=== PATIENT | male | born 1955 | race Caucasian/White ===

== ENCOUNTER 2019-10-31 08:55 | Emergency (ER) | payer OTHER ==
[~2019-10-31] VITALS: Ht 180.3 cm; Wt 78.7 kg
[2019-10-31 09:03] VITALS: BP 168/99
== END 2019-10-31 10:06 | disposition home or self-care (01) ==
LOC: ED 09:42
DX: L02.211 Cutaneous abscess of abdominal wall (principal); Z98.890 Other specified postprocedural states
CPT/HCPCS: 99283

== ENCOUNTER → 2021-05-03 | Outpatient (CLI) | payer OTHER ==
[~2021-05-03] MED LIST: AMLO-150 PO; HYDR25TA6 PO; LOSA100T14 PO
[2021-05-03 14:46] LABS: BASOPHILS % (AUTO) 1 % (0-1); EOSINOPHILS % (AUTO) 1 % (1-7); LYMPHOCYTES % (AUTO) 34 % (22-44); MEAN CORPUSCULAR HEMOGLOBIN 35.6 pg (27.5-34.5); MEAN CORPUSCULAR HGB CONC 34.5 g/dL (33.2-36.2); MEAN PLATELET VOLUME 6.7 fL (7.4-10.4); MONOCYTES % (AUTO) 12 % (2-9); NEUTROPHILS % (AUTO) 52 % (42-75); PLATELET COUNT 333 x10^3/uL (130-400); RED BLOOD COUNT 4.08 x10^6/uL (4.38-5.82); RED CELL DISTRIBUTION WIDTH 12.9 % (9.4-14.8)
[2021-05-03 14:58] LABS: ALBUMIN 4.3 g/dL (3.4-5.0); ANION GAP 9 mmol/L (5-15); CALCIUM 9.4 mg/dL (8.5-10.1); CHLORIDE 100 mmol/L (98-107); INTERNATIONAL NORMALIZED RATIO 0.95 (0.93-1.1); PROTHROMBIN TIME 10.2 Seconds (9.6-11.5)
[2021-05-03 15:02] LABS: ALANINE AMINOTRANSFERASE 37 U/L (12-78); ALKALINE PHOSPHATASE 32 U/L (45-117); BILIRUBIN,TOTAL 0.7 mg/dL (0.2-1.0); CREATININE 0.99 mg/dL (0.7-1.3); TOTAL PROTEIN 7.5 g/dL (6.4-8.2)
[2021-05-03 15:02] LABS: MICROSCOPIC NOT IND
== END | disposition home or self-care (01) ==
LOC: STAR 13:53
PROVIDERS: ATTEND Neurological Surgery
DX: Z01.818 Encounter for other preprocedural examination (principal); M48.061 Spinal stenosis, lumbar region without neurogenic claudication; I49.1 Atrial premature depolarization; Z20.822 Contact with and (suspected) exposure to COVID-19
CPT/HCPCS: 36415; 71046; 80053; 81003; 85025; 85610; 85730; 93005; U0003; U0005

== ENCOUNTER 2021-05-07 13:06 | Day surgery (SDC) | payer OTHER ==
[~2021-05-07] VITALS: Ht 180.3 cm; Wt 79.9 kg
[2021-05-07 13:50] VITALS: BP 153/87
[2021-05-07] MEDS ORDERED: CHLORHEXIDINE 15 ML UDC PO ONE (14:00)
[2021-05-07] MEDS ORDERED: LACTATED RINGERS 1,000 ML IV SCH (14:00)
[2021-05-07] MEDS ORDERED: FENTANYL PF 250 MCG/5ML ONE (15:08)
[2021-05-07] MEDS ORDERED: DEXAMETHASONE 4 MG/ML, 1ML ONE ×2 (15:08→15:24)
[2021-05-07] MEDS ORDERED: MIDAZOLAM 1 MG/ML, 2ML ONE (15:08)
[2021-05-07] MEDS ORDERED: BUPIVACAINE/PF 0.5% ONE (15:09)
[2021-05-07] MEDS ORDERED: BUPIVACAINE/PF 0.25% ONE ×2 (15:09→16:00)
[2021-05-07] MEDS ORDERED: EPINEPHRINE 1 MG/ML, 1ML ONE ×2 (15:10→16:00)
[2021-05-07] MEDS ORDERED: BACITRACIN 50,000 UNIT ONE ×2 (15:10→16:00)
[2021-05-07] MEDS ORDERED: PROPOFOL 10 MG/ML, 20ML ONE (15:24)
[2021-05-07] MEDS ORDERED: SUCCINYLCHOLINE 20 MG/ML, 10ML ONE (15:24)
[2021-05-07] MEDS ORDERED: GLYCOPYRROLATE 0.2MG/1ML, 5ML ONE (15:24)
[2021-05-07] MEDS ORDERED: CEFAZOLIN 1,000 MG ONE ×2 (15:24)
[2021-05-07] MEDS ORDERED: ROCURONIUM 10MG/ML,5ML ONE (15:24)
[2021-05-07] MEDS ORDERED: methylPREDNISolone SOD SUCC 125 MG/2 ML ONE (15:58)
[2021-05-07] MEDS ORDERED: FENTANYL PF 100 MCG/2ML ONE ×2 (15:59→17:02)
[2021-05-07] MEDS ORDERED: NEOSTIGMINE 1 MG/ML, 10ML ONE (16:07)
[2021-05-07] MEDS ORDERED: OXYC-302 PO (16:49)
[2021-05-07] MEDS ORDERED: TIZA-106 PO (16:49)
[2021-05-07] MEDS ORDERED: OXYcodone 5 MG/5 ML ORAL.SOL UDC ONE (17:02)
[2021-05-07] MEDS ORDERED: morphine SULFATE 10 MG/ML, 1ML IVPush PRN (17:30)
[2021-05-07] MEDS ORDERED: FENTANYL PF 100 MCG/2ML IV PRN (17:30)
[2021-05-07] MEDS ORDERED: OXYcodone 5 MG/5 ML ORAL.SOL UDC PO PRN (17:30)
[2021-05-07] MEDS ORDERED: hydrALAzine 20 MG/ML, 1ML IV PRN (17:30)
[2021-05-07] MEDS ORDERED: ONDANSETRON 2MG/ML, 2ML IVPush PRN (17:30)
[2021-05-07] MEDS ORDERED: LABETALOL 5MG/ML, 20ML IV PRN (17:30)
[2021-05-07] MEDS ORDERED: MEPERIDINE/PF 25MG/0.5ML IVPush PRN (17:30)
[2021-05-07] MEDS ORDERED: ACETAMINOPHEN 325 MG TABLET PO PRN (17:30)
[2021-05-07] MEDS ORDERED: HYDROmorphone 1 MG/ML, 1ML INJ IVPush PRN (17:30)
== END 2021-05-07 19:00 | disposition home or self-care (01) ==
LOC: OR 13:06
PROVIDERS: ATTEND Neurological Surgery
DX: M48.061 Spinal stenosis, lumbar region without neurogenic claudication (principal); M48.07 Spinal stenosis, lumbosacral region; M51.16 Intervertebral disc disorders with radiculopathy, lumbar region; M51.17 Intervertebral disc disorders with radiculopathy, lumbosacral region; I10 Essential (primary) hypertension; Z79.899 Other long term (current) drug therapy; Z88.8 Allergy status to other drugs, medicaments and biological substances; Z98.890 Other specified postprocedural states; Z80.9 Family history of malignant neoplasm, unspecified
CPT/HCPCS: 63030; 63035; 72100; J0171; J0330; J0690; J1100; J2250; J2704; J2710; J2930; J3010; J7120